=== PATIENT | female | born 2000 | race African-American/Black ===

== ENCOUNTER 2020-06-05 17:33 | Emergency (ER) | payer SELFPAY ==
[2020-06-06 03:28] LABS: SARS-CoV-2 MS2 Positive; SARS-CoV-2 N Gene Positive; SARS-CoV-2 S Gene Negative; SARS-CoV-2 by NAA DETECTED (NotDetected); SARS-CoV-2 orf1ab Positive
== END 2020-06-05 17:50 | disposition left against medical advice (07) ==
LOC: ERS 17:33
DX: Z53.21 Procedure and treatment not carried out due to patient leaving prior to being seen by health care provider (principal)
CPT/HCPCS: 87635; U0003

== ENCOUNTER 2020-11-12 14:40 | Emergency (ER) | payer SELFPAY | END 2020-11-12 15:34 | disposition home or self-care (01) | LOC: ERS 14:40 | DX: H69.91 Unspecified Eustachian tube disorder, right ear (principal); J30.9 Allergic rhinitis, unspecified | CPT/HCPCS: 99282 ==

== ENCOUNTER 2020-11-27 10:41 | Emergency (ER) | payer SELFPAY | END 2020-11-27 12:43 | disposition home or self-care (01) | LOC: ERS 10:41 | DX: T78.40XA Allergy, unspecified, initial encounter (principal) | CPT/HCPCS: 87081; 87430; 99283 ==

== ENCOUNTER 2021-04-24 12:21 | Emergency (ER) | payer SELFPAY | END 2021-04-24 13:50 | disposition home or self-care (01) | LOC: ERS 12:21 | DX: K02.9 Dental caries, unspecified (principal); K04.7 Periapical abscess without sinus | CPT/HCPCS: 99282 ==